=== PATIENT | male | born 1975 | race Hispanic/Latino ===

== ENCOUNTER 2017-06-19 03:06 | Emergency (ER) | payer SELFPAY ==
[2017-06-19 04:21] LABS: Absolute Lymphocytes (CBC) 2.7 K/uL (0.7-4.9); Absolute Monocytes 0.7 K/uL (0.1-1.3); Absolute Neutrophil 4.9 K/uL (1.8-8.0); Basophils % 0.7 % (0-1.3); Eosinophils % 1.2 % (0-4.4); Hematocrit 44.4 % (39.6-49.0); Lymphocytes % 31.9 % (15.3-44.8); MCH 31.5 pg (27.0-35.0); MCV 91.7 fL (80-100); MPV 10.9 fL (7.6-11.3); Monocytes % 7.9 % (3.3-12.3); RBC Red Blood Cell Count 4.84 M/uL (4.33-5.43)
[2017-06-19 05:03] LABS: Bicarbonate 22 mEq/L (21-31); Glucose Level 207 mg/dL (65-120); Potassium 4.4 mEq/L (3.6-5.0); Sodium Level 136 mEq/L (135-145)
[2017-06-19 05:09] LABS: ALT/SGPT 98 IU/L (10-60); AST/SGOT 62 IU/L (10-42); Albumin 4.5 g/dL (3.2-5.5); Alkaline Phosphatase 101 IU/L (42-121); BUN Blood Urea Nitrogen 10 mg/dL (6-20); Bilirubin Direct 0.1 mg/dL (0-0.2); Bilirubin Total 0.7 mg/dL (0.3-1.2); Creatine Phosphokinase 255 IU/L (22-269); Magnesium 2.1 mg/dL (1.8-2.5); Protein, Total 7.6 g/dL (6.0-8.3)
[2017-06-19 05:13] LABS: CKMB Creatine Kinase MB 1.3 ng/ml (0.3-4.0)
--- NOTE | 2017-06-19 05:26 | EDPHYS ---
Physician Documentation [facility] Name: Georges Marroquin Age: 41 yrs Sex: Male : 1975 Arrival Date: 06/19/2017 Time: 03:07 Bed 2 Private MD: ED Physician Juan Mcmanus HPI: 06/19 03:30 This 41 yrs old Male presents to ER via EMS with complaints of Chest Pain > 30 pkl y/o. 03:30 The patient or guardian reports chest pain that is located primarily in the substernal pkl area. Onset: just prior to arrival, 1 hour(s) ago, and improved just prior to arrival. The pain does not radiate. Associated signs and symptoms: The patient has no apparent associated signs or symptoms. The chest pain is described as a pressure. Historical: - Allergies: 03:19 No Known Allergies; ea - Home Meds: 03:19 Lorazepam Oral [Active]; Zoloft Oral [Active]; ea - PMHx: 03:19 Diabetes - IDDM; Anxiety; ea - Immunization history:: Adult Immunizations up to date. ROS: 03:30 Eyes: Negative for injury, pain, redness, and discharge, ENT: Negative for injury, pkl pain, and discharge, Neck: Negative for injury, pain, and swelling. 03:30 Cardiovascular: Positive for chest pain. 03:30 Respiratory: Positive for shortness of breath. 03:30 Abdomen/GI: Negative for abdominal pain, nausea, vomiting, and diarrhea. 03:30 Back: Negative for acute changes. 03:30 : Negative for urinary symptoms. 03:30 MS/extremity: Negative for acute changes. 03:30 Skin: Negative for rash. 03:30 Neuro: Negative for altered mental status. Exam: 03:30 Head/Face: Normocephalic, atraumatic. Eyes: Pupils equal round and reactive to light, pkl extra-ocular motions intact. Lids and lashes normal. Conjunctiva and sclera are non-icteric and not injected. Cornea within normal limits. Periorbital areas with no swelling, redness, or edema. ENT: Nares patent. No nasal discharge, no septal abnormalities noted. Tympanic membranes are normal and external auditory canals are clear. Oropharynx with no redness, swelling, or masses, exudates, or evidence of obstruction, uvula midline. Mucous membranes moist. Neck: Trachea midline, no thyromegaly or masses palpated, and no cervical lymphadenopathy. Supple, full range of motion without nuchal rigidity, or vertebral point tenderness. No Meningismus. Chest/axilla: Normal chest wall appearance and motion. Nontender with no deformity. No lesions are appreciated. Cardiovascular: Regular rate and rhythm with a normal S1 and S2. No gallops, murmurs, or rubs. Normal PMI, no JVD. No pulse deficits. Respiratory: Lungs have equal breath sounds bilaterally, clear to auscultation and percussion. No rales, rhonchi or wheezes noted. No increased work of breathing, no retractions or nasal flaring. Abdomen/GI: Soft, non-tender, with normal bowel sounds. No distension or tympany. No guarding or rebound. No evidence of tenderness throughout. Back: No spinal tenderness. No costovertebral tenderness. Full range of motion. Skin: Warm, dry with normal turgor. Normal color with no rashes, no lesions, and no evidence of cellulitis. MS/ Extremity: Pulses equal, no cyanosis. Neurovascular intact. Full, normal range of motion. Neuro: Awake and alert, GCS 15, oriented to person, place, time, and situation. Cranial nerves II-XII grossly intact. Motor strength 5/5 in all extremities. Sensory grossly intact. Cerebellar exam normal. Normal gait. Vital Signs: 03:19 BP 139 / 86 LA Sitting (auto/reg); Pulse 94; Resp 20; Pulse Ox 95% ; Weight 122.47 kg; cc Height 6 ft. 0 in. (182.88 cm); Pain 0/10; 04:00 BP 129 / 81; Pulse 91; Resp 18; Pulse Ox 100% on R/A; Pain 0/10; ea 05:21 BP 147 / 90; Pulse 91; Resp 18 S; Pulse Ox 99% on R/A; ea 03:19 Body Mass Index 36.62 (122.47 kg, 182.88 cm) cc MDM: 03:12 Patient medically screened. pkl 05:25 Data reviewed: vital signs, nurses notes, lab test result(s), EKG, radiologic studies, pkl plain films. 06/19 03:24 Order name: Basic Metabolic Panel; Complete Time: 05:24 pkl 06/19 03:24 Order name: BNP; Complete Time: 05:24 pkl 04 03:24 Order name: CBC with Diff; Complete Time: 05:24 pkl 06/19 03:24 Order name: Ckmb; Complete Time: 05:24 pkl 06/19 03:24 Order name: CPK; Complete Time: 05:24 pkl 06/19 03:24 Order name: LFT's; Complete Time: 05:24 pkl 06/19 03:24 Order name: Magnesium; Complete Time: 05:24 pkl 06/19 03:24 Order name: PT-INR; Complete Time: 05:24 pkl 06/19 03:24 Order name: Ptt, Activated; Complete Time: 05:24 pkl 06/19 03:24 Order name: Troponin (emerg Dept Use Only); Complete Time: 05:24 pkl 06/19 03:24 Order name: XRAY Chest (1 view) pkl 06/19 03:24 Order name: D-Dimer; Complete Time: 05:24 pkl 06/19 03:29 Order name: ETOH Level; Complete Time: 05:24 pkl 06/19 03:24 Order name: EKG; Complete Time: 03:25 pkl 06/19 03:24 Order name: Cardiac monitoring; Complete Time: 03:49 pkl 06/19 03:24 Order name: EKG - Nurse/Tech; Complete Time: 03:49 pkl 06/19 03:24 Order name: IV Saline Lock; Complete Time: 03:49 pkl 06/19 03:24 Order name: Labs collected and sent; Complete Time: 03:49 pkl 06/19 03:24 Order name: O2 Per Protocol; Complete Time: 03:49 pkl 06/19 03:24 Order name: O2 Sat Monitoring; Complete Time: 03:49 pkl 06/19 03:24 Order name: Urine Dipstick-Ancillary (obtain specimen); Complete Time: 03:49 pkl Administered Medications: No medications were administered Disposition: 06/19/17 05:26 Discharged to Home. Impression: Chest pain. - Condition is Stable. - Medication Reconciliation Form, Thank You Letter, Antibiotic Education, Prescription Opioid Use form. - Follow up: Private Physician; When: 2 - 3 days; Reason: Re-evaluation by your physician. - Problem is new. - Symptoms have improved. Signatures: Dispatcher [employer] Juan Hemphill MD MD pkl Antunez, Elena, RN RN ea
--- NOTE | 2017-06-19 05:26 | ER ---
Nurse's Notes [facility] Name: Georges Marroquin Age: 41 yrs Sex: Male : 1975 Arrival Date: 06/19/2017 Time: 03:07 Bed 2 Private MD: Diagnosis: Chest pain Presentation: 06/19 03:00 Presenting complaint: EMS states: Called to snf, upon arrival pt complaining of ea chest pain in center of chest that was 10/10 and was making him short of breath. Transition of care: patient was not received from another setting of care. Onset of symptoms was June 19, 2017. Care prior to arrival: None. 03:00 Method Of Arrival: EMS: [facility] ea 03:00 Acuity: URMILA 3 ea Triage Assessment: 03:20 General: Appears uncomfortable, Behavior is anxious. General: pt denies pain states "it ea is not pain it is pressure it feels like someone is sitting on my chest". Pain: Denies pain. EENT: No deficits noted. Neuro: Level of Consciousness is awake, alert, obeys commands, Oriented to person, place, time, situation. Cardiovascular: Heart tones present Patient's skin is warm and dry. Respiratory: Airway is patent Respiratory effort is even, unlabored, Respiratory pattern is regular, symmetrical. GI: No signs and/or symptoms were reported involving the gastrointestinal system. : No signs and/or symptoms were reported regarding the genitourinary system. Derm: Skin is pink, warm \\T\\ dry. Historical: - Allergies: 03:19 No Known Allergies; ea - Home Meds: 03:19 Lorazepam Oral [Active]; Zoloft Oral [Active]; ea - PMHx: 03:19 Diabetes - IDDM; Anxiety; ea - Immunization history:: Adult Immunizations up to date. Screenin:23 Abuse screen: Denies threats or abuse. Nutritional screening: No deficits noted. ea Tuberculosis screening: No symptoms or risk factors identified. Fall Risk None identified. Assessment: 03:23 Pain: Pain does not radiate. Quality of pain is described as pressure, Pain began 30 ea min ago. 03:23 Neuro: Level of Consciousness is awake, alert, obeys commands, Oriented to person, ea place, time, situation. Cardiovascular: Heart tones present Patient's skin is warm and dry. Respiratory: Airway is patent Respiratory effort is even, unlabored, Respiratory pattern is regular, symmetrical. Derm: Skin is pink, warm \\T\\ dry. 04:00 Reassessment: Patient is alert, oriented x 3, equal unlabored respirations, skin ea warm/dry/pink. [employer] at bedside. Patient denies pain at this time. Patient states feeling better. Patient states symptoms have improved. 05:19 Reassessment: Patient is alert, oriented x 3, equal unlabored respirations, skin ea warm/dry/pink. [employer] at bedside Patient denies pain at this time. Patient states feeling better. Patient states symptoms have improved. 05:32 Reassessment: Patient is alert, oriented x 3, equal unlabored respirations, skin ea warm/dry/pink. Discharge instructions given to patient, [employer] at bedside, pt verbalized understanding of instruction. Patient denies pain at this time. Patient states feeling better. Patient states symptoms have improved. Reassessment: [employer] at bedside. Vital Signs: 03:19 BP 139 / 86 LA Sitting (auto/reg); Pulse 94; Resp 20; Pulse Ox 95% ; Weight 122.47 kg; cc Height 6 ft. 0 in. (182.88 cm); Pain 0/10; 04:00 BP 129 / 81; Pulse 91; Resp 18; Pulse Ox 100% on R/A; Pain 0/10; ea 05:21 BP 147 / 90; Pulse 91; Resp 18 S; Pulse Ox 99% on R/A; ea 03:19 Body Mass Index 36.62 (122.47 kg, 182.88 cm) cc ED Course: 03:07 Patient arrived in ED. am2 03:12 Juan Mcmanus MD is Attending Physician. pkl 03:17 Triage completed. ea 03:18 Inserted saline lock: 18 gauge in right antecubital area, using aseptic technique. cc Blood collected. 03:19 EKG done, by ED staff, reviewed by Juan Mcmanus MD. cc 03:23 Arm band placed on left wrist. ea 03:23 Patient has correct armband on for positive identification. Call light in reach. Side ea rails up X2. personnel monitor on. Pulse ox on. NIBP on. 03:24 Ileana Zurita, NEELIMA is Primary Nurse. ea 03:24 Patient maintains SpO2 saturation greater than 95% on room air. ea 03:42 XRAY Chest (1 view) In Process Unspecified. EDMS 05:35 No provider procedures requiring assistance completed. IV discontinued, intact, ea bleeding controlled, No redness/swelling at site. Pressure dressing applied. Administered Medications: No medications were administered Outcome: 05:26 Discharge ordered by . roseline 05:36 Discharged to [employer] Enforcement ea 05:36 Condition: improved 05:36 Discharge instructions given to patient, Instructed on discharge instructions, follow up and referral plans. Demonstrated understanding of instructions, follow-up care. 05:36 Patient left the ED. ea Signatures: Dispatcher [employer] EDMS Juan Mcmanus MD MD pkl Christian, Chelsea cc Moreno, Amanda am2 Ileana Zurita RN RN ea Corrections: (The following items were deleted from the chart) 04:00 03:23 Pain: Pain does not radiate. Pain began 30 min ago. ea ea 05:35 03:23 Respiratory: Airway is patent Respiratory effort is even, unlabored, Respiratory ea pattern is regular, symmetrical, ea 05:35 04:00 Reassessment: Patient is alert, oriented x 3, equal unlabored respirations, skin ea warm/dry/pink. Patient denies pain at this time. Patient states feeling better. Patient states symptoms have improved. ea 05:35 05:19 Reassessment: Patient is alert, oriented x 3, equal unlabored respirations, skin ea warm/dry/pink. Patient denies pain at this time. Patient states feeling better. Patient states symptoms have improved. ea
--- NOTE | 2017-06-19 07:05 | EKG ---
Test Date: 2017-06-19 Test Time: 03:14:36 Campground Attendant: MEASUREMENT RESULTS: Intervals: Rate: 93 MS: 180 QRSD: 102 QT: 372 QTc: 462 [place]: P: 49 MS: 180 QRS: 44 T: 14 INTERPRETIVE STATEMENTS: Normal sinus rhythm Normal ECG Compared to ECG 03/07/1999 12:45:00 Sinus arrhythmia no longer present Incomplete right bundle-branch block no longer present Electronically Signed On 06-19-17 07:04:31 CDT by Dony Laughlin
--- NOTE | 2017-06-19 07:57 | RAD REPORT ---
EXAM DESCRIPTION: RAD - Chest Single View - 06/19/2017 3:42 am CLINICAL HISTORY: Chest pain, shortness of breath COMPARISON: None. TECHNIQUE: AP portable chest image was obtained 0330 hours . FINDINGS: Lungs are clear. Heart and vasculature are normal. No measurable pleural effusion and no p neumothorax. No gross bony abnormality seen. No acute aortic findings suspected. IMPRESSION: No acute cardiopulmonary process.
== END 2017-06-19 05:36 | disposition home or self-care (01) ==
LOC: ER 03:06
DX: R07.9 Chest pain, unspecified (principal); E11.9 Type 2 diabetes mellitus without complications; F41.9 Anxiety disorder, unspecified
CPT/HCPCS: 36415; 71045; 80048; 80076; 80320; 82550; 82553; 83735; 83880; 84484; 85025; 85379; 85610; 85730; 93005; 99285

== ENCOUNTER 2022-05-24 10:36 | Emergency (ER) | payer SELFPAY | END 2022-05-24 11:25 | disposition home or self-care (01) | LOC: ER 10:36 | DX: Z02.9 Encounter for administrative examinations, unspecified (principal) ==

== ENCOUNTER 2024-11-04 11:42 | Emergency (ER) | payer BC ==
[2024-11-04] MEDS ORDERED: ASPIRIN 81 MG CHEWABLE TABLET ONE (11:51)
[2024-11-04 12:08] LABS: Absolute Lymphocytes (CBC) 1.8 K/uL (0.7-4.9); Hematocrit 40.2 % (39.6-49.0); Hemoglobin 13.5 g/dL (13.6-17.9); MCH 28.7 pg (27.0-35.0); MCHC 33.6 g/dL (32.0-36.0); MCV 85.5 fL (80-100); MPV 9.8 fL (7.6-11.3); Nucleated RBC Absolute Count 0.0 (0-0); Nucleated Red Blood Cells % 0.0 % (0-0); RBC Red Blood Cell Count 4.70 M/uL (4.33-5.43); White Blood Count 7.50 thou/uL (4.3-10.9)
[2024-11-04 12:32] LABS: ALT/SGPT 43.0 U/L (16-61); AST/SGOT 26.0 U/L (15-37); Albumin 3.7 g/dL (3.4-5.0); Albumin/Globulin Ratio 0.9 (1.1-1.8); Alkaline Phosphatase 92.0 U/L (45-117); Anion Gap 9.6 mEq/L (5.0-15.0); BUN Blood Urea Nitrogen 8.0 mg/dL (7-18); Globulin 3.9 g/dL (2.3-3.5); Glucose Level 134.0 mg/dL (74-106); NT PRO-BNP 25.0 pg/mL (<125); Potassium 3.6 mEq/L (3.5-5.1); Troponin High Sensitivity 3.6 pg/mL (<58.9)
--- NOTE | 2024-11-04 12:51 | RAD REPORT ---
EXAM: Chest Single View HISTORY: 49 years Male CHEST PAIN COMPARISON: 04/19/2019 FINDINGS: LUNGS/PLEURA: The lungs are clear. No pleural effusions or pneumothorax. No pulmonary edema. CARDIAC/MEDIASTINUM: The cardiac silhouette is within normal limits. UPPER ABDOMEN: No significant abnormality. BONES: No acute abnormality. LINES/TUBES/OTHER: N/A IMPRESSION: No evidence of acute cardiopulmonary disease.
--- NOTE | 2024-11-04 13:30 | ER ---
Nurse's Notes [facility] Name: Georges Marroquin Age: 49 yrs Sex: Male : 1975 Arrival Date: 11/04/2024 Time: 11:42 Bed 14 Private MD: Diagnosis: Chest pain, unspecified Presentation: 11/04 11:48 Acuity: URMILA 3 aa5 11:48 Chief complaint: Patient states: had follow-up with PCP today and had abnormal EKG at aa5 PCP's office. Pt denies any complaints, pt states "I just feel anxious now". 11:48 Coronavirus screen: At this time, the client does not indicate any symptoms associated aa5 with coronavirus-19. Ebola Screen: Patient denies travel to an Ebola-affected area in the 21 days before illness onset. Initial Sepsis Screen: Does the patient meet any 2 criteria? No. Patient's initial sepsis screen is negative. Does the patient have a suspected source of infection? No. Patient's initial sepsis screen is negative. Risk Assessment: Do you want to hurt yourself or someone else? Patient reports no desire to harm self or others. Onset of symptoms was November 04, 2024. 11:48 Method Of Arrival: Ambulatory aa5 Historical: - Allergies: 11:52 No Known Allergies; aa5 - Home Meds: 11:52 Prilosec Oral [Active]; Mounjaro subcutaneous [Active]; Zoloft Oral [Active]; Lorazepam aa5 Oral [Active]; - PMHx: 11:52 Anxiety; fatty liver; Hypercholesterolemia; Diabetes mellitus; Acid Reflux; aa5 - Immunization history:: Adult Immunizations unknown. - Infectious Disease History:: Denies. - Social history:: Smoking status: Reported history of juuling and/or vaping. Screenin:48 [facility] ED Fall Risk Assessment (Adult) History of falling in the last 3 months, aa5 including since admission No falls in past 3 months (0 pts) Confusion or Disorientation No (0 pts) Intoxicated or Sedated No (0 pts) Impaired Gait No (0 pts) Mobility Assist Device Used No (0 pt) Altered Elimination No (0 pt) Score/Fall Risk Level 0 - 2 = Low Risk Oriented to surroundings, Maintained a safe environment, Educated pt \\T\\ family on fall prevention, incl call for assistance when getting out of bed, Assessed \\T\\ reinforced patient's understanding of fall precautions. Abuse screen: Denies threats or abuse. Nutritional screening: No deficits noted. Tuberculosis screening: No symptoms or risk factors identified. Assessment: 11:48 General: Appears uncomfortable, Behavior is anxious. Pain: Denies pain. Neuro: Level of aa5 Consciousness is awake, alert, obeys commands, Oriented to person, place, time, situation. Cardiovascular: Denies chest pain, diaphoresis, fatigue, lightheadedness, nausea, palpitations, shortness of breath, syncope, vomiting, Heart tones S1 S2 present Rhythm is regular. Respiratory: Airway is patent Respiratory effort is even, unlabored, Respiratory pattern is regular, symmetrical. GI: Abdomen is round non-distended, obese, Bowel sounds present X 4 quads. Abd is soft and non tender X 4 quads. Patient currently denies nausea, vomiting. : No signs and/or symptoms were reported regarding the genitourinary system. EENT: No signs and/or symptoms were reported regarding the EENT system. Derm: Skin is pink, warm \\T\\ dry. Musculoskeletal: Range of motion: intact in all extremities. 12:00 Reassessment: Patient is alert, oriented x 3, equal unlabored respirations, skin aa5 warm/dry/pink. Patient denies pain at this time. Patient states feeling better. Anxiety has improved. . Vital Signs: 11:48 BP 171 / 100; Pulse 95; Resp 19 S; Temp 98(O); Pulse Ox 100% on R/A; Weight 118.39 kg aa5 (R); Height 6 ft. 0 in. (R); Pain 0/10; 13:00 BP 150 / 81; Pulse 87; Resp 18 S; Pulse Ox 99% on R/A; aa5 13:30 BP 150 / 83; Pulse 86; Resp 16; Temp 98.2; Pulse Ox 99% ; me1 11:48 Body Mass Index 35.40 (118.39 kg, 182.88 cm) aa5 11:48 Pain Scale: Adult aa5 ED Course: 11:44 Patient arrived in ED. mr 11:46 Tyson [facility]C [facility]. [facility] 11:46 Pepe Maloney DO is Attending Physician. dr5 11:46 Duke, Fabi, RN is Primary Nurse. aa5 11:48 Arm band placed on Patient placed in an exam room, on a stretcher. EKG completed in aa5 triage. Results shown to MD. 11:48 Patient has correct armband on for positive identification. Bed in low position. Call aa5 light in reach. Side rails up X2. Client placed on continuous cardiac and pulse oximetry monitoring. NIBP monitoring applied. teletypesetter monitor on. Pulse ox on. NIBP on. 11:53 Triage completed. aa5 12:02 Initial lab(s) drawn, by me, sent to lab. EKG done, by ED staff, reviewed by Tyson VALADEZ. Inserted saline lock: 20 gauge in right antecubital area, using aseptic technique. Blood collected. Flushed with 10 mL NS. 12:08 CBC with Diff Sent. nh2 12:08 NT PRO-BNP Sent. nh2 12:08 Troponin HS Sent. nh2 12:41 XRAY Chest (1 view) In Process Unspecified. EDIL 13:00 Report given to NEELIMA Barrera. aa5 13:19 No provider procedures requiring assistance completed. aa5 13:41 Provided Education on: POC. Verbalized understanding.. me1 13:41 IV discontinued, intact, bleeding controlled, No redness/swelling at site. Pressure me1 dressing applied. Administered Medications: 12:00 Drug: Aspirin PO Chewable Tablet 324 mg PO once; 81 mg tablets x 4 Route: PO; nh2 12:30 Follow up: Response: No adverse reaction nh2 12:01 Not Given (Patient Refused): ondansetron 4 mg IVP once; over 2 minutes aa5 12:02 Not Given (Pt denies painn): morphineor iv 4 mg IVP once over 4 mins aa5 Medication: 13:41 VIS not applicable for this client. me1 Outcome: 13:29 Discharge ordered by MD. dr5 13:41 Discharged to home ambulatory, with significant other, me1 13:41 Condition: stable 13:41 Discharge instructions given to patient, significant other, Instructed on discharge instructions, follow up and referral plans. medication usage, Demonstrated understanding of instructions, follow-up care, medications, Prescriptions given X 1, 13:42 Patient left the ED. me1 Signatures: Dispatcher [employer] [facility] Lois Marroquin, Reg Reg mr Fabi Duke, RN RN aa5 Alana Ramesh 6 Holly Cardoza RN RN me1 Claude Phillips Jr RN RN nh2 Tyson Hernandez, SLIDE FORMING MACHINE OPERATOR-C SLIDE FORMING MACHINE OPERATOR-Cdr5 Corrections: (The following items were deleted from the chart) 11:52 PMHx: Diabetes - IDDM; aa5 aa5 11:52 PMHx: Diabetes mellitus; aa5 aa5 13:12 13:11 Response: No adverse reaction nh2 nh2
--- NOTE | 2024-11-04 13:30 | EDPHYS ---
Physician Documentation [facility] Name: Georges Marroquin Age: 49 yrs Sex: Male : 1975 Arrival Date: 11/04/2024 Time: 11:42 Bed 14 Private MD: ED Physician Pepe Maloney HPI: 11/04 12:01 This 49 yrs old Male presents to ER via Unassigned with complaints of Abnormal dr5 labs. 12:01 Onset: The symptoms/episode began/occurred 4 day(s) ago. 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 Patient reports that last he reports episode of headache without chest pain and called EMS for evaluation. Patient states that he tried to get into his doctor on Monday but was not able to get into until today. Patient denies chest pain or any pain at all today. Patient reports he was seen at primary care doctor and sent for labs for abnormal EKG.. Historical: - Allergies: 11:52 No Known Allergies; aa5 - Home Meds: 11:52 Prilosec Oral [Active]; Mounjaro subcutaneous [Active]; Zoloft Oral [Active]; Lorazepam aa5 Oral [Active]; - PMHx: 11:52 Anxiety; fatty liver; Hypercholesterolemia; Diabetes mellitus; Acid Reflux; aa5 - Immunization history:: Adult Immunizations unknown. - Infectious Disease History:: Denies. - Social history:: Smoking status: Reported history of juuling and/or vaping. ROS: 12:02 Constitutional: as per hpi dr5 Exam: 12:02 Constitutional: This is a well developed, well nourished patient who is awake, alert, dr5 and in no acute distress. Head/Face: Normocephalic, atraumatic. Eyes: Pupils equal round and reactive to light, extra-ocular motions intact. Lids and lashes normal. Conjunctiva and sclera are non-icteric and not injected. Cornea within normal limits. Periorbital areas with no swelling, redness, or edema. Neck: Trachea midline, no thyromegaly or masses palpated, and no cervical lymphadenopathy. Supple, full range of motion without nuchal rigidity, or vertebral point tenderness. No Meningismus. Chest/axilla: Normal chest wall appearance and motion. Nontender with no deformity. No lesions are appreciated. Cardiovascular: Regular rate and rhythm with a normal S1 and S2. Normal PMI, no JVD. No pulse deficits. Respiratory: Lungs have equal breath sounds bilaterally, clear to auscultation. No rales, rhonchi or wheezes noted. No increased work of breathing, no retractions or nasal flaring. Abdomen/GI: Soft, non-tender, non-distended Back: No spinal tenderness. No costovertebral tenderness. Full range of motion. Skin: Warm, dry with normal turgor. Normal color with no rashes, no lesions, and no evidence of cellulitis. MS/ Extremity: Pulses equal, no cyanosis. Neurovascular intact. Full, normal range of motion. Neuro: Awake and alert, GCS 15, oriented to person, place, time, and situation. Cranial nerves II-XII grossly intact. Motor strength 5/5 in all extremities. Sensory grossly intact. Cerebellar exam normal. Normal gait. Vital Signs: 11:48 BP 171 / 100; Pulse 95; Resp 19 S; Temp 98(O); Pulse Ox 100% on R/A; Weight 118.39 kg aa5 (R); Height 6 ft. 0 in. (R); Pain 0/10; 13:00 BP 150 / 81; Pulse 87; Resp 18 S; Pulse Ox 99% on R/A; aa5 13:30 BP 150 / 83; Pulse 86; Resp 16; Temp 98.2; Pulse Ox 99% ; me1 11:48 Body Mass Index 35.40 (118.39 kg, 182.88 cm) aa5 11:48 Pain Scale: Adult aa5 MDM: 11:47 Medical Screening Exam initiated dr5 18:13 Differential diagnosis: viral Infection, bacterial infection, bronchitis, pneumonia dr5 NSTEMI, STEMI, pneumomediastinum. Data reviewed: vital signs, nurses notes, lab test result(s), cardiac enzymes, troponin i, CBC, white blood cell count, hemoglobin, hematocrit, platelets, electrolytes, sodium, potassium, chloride, serum bicarbonate, BUN, creatinine, serum glucose, EKG, radiologic studies, plain films. Consideration of Admission/Observation Escalation of care including admission/observation considered. Escalation considered patient found to have elevated troponin or chest pain.. Management of patient was discussed with the following: Primary Care Provider: Dr. Jaquez called and discussed case. I considered the following discharge prescriptions or medication management in the emergency department I discussed and recommended Over The Counter medications, Medications were administered in the Emergency Department. See MAR. Independent interpretation of the following test(s) in the Emergency Department X-Ray: My interpretation is Independent interpretation of x-ray did not reveal any infiltrates.. Care significantly affected by the following chronic conditions: Diabetes, Anxiety, fatty liver, hyperlipidemia, acid reflux. Care significantly affected by the following Social Determinants of Health: Poor access to healthcare and/or lack of insurance, Poor access to transportation, Problems related to employment. Scoring Tools HEART Score: History: ECG: Age: Risk Factors: 1 or 2 risk factors (1), Troponin: Total Score = 2 Nexus C Spine. Counseling: I had a detailed discussion with the patient and/or guardian regarding the historical points, exam findings, and any diagnostic results supporting the discharge/admit diagnosis, the presence of at least one elevated blood pressure reading (>120/80) during this emergency department visit, lab results, radiology results, the need for outpatient follow up, for definitive care, a family practitioner, to return to the emergency department if symptoms worsen or persist or if there are any questions or concerns that arise at home. Medication response: Aspirin. Response to treatment: the patient's condition has returned to base line, the patient is now symptom free. Special discussion: I have referred the patient to see his PCP for further evaluation of high blood pressure. I discussed with the patient/guardian in detail that at this point there is no indication for admission to the hospital. It is understood, however, that if the symptoms persist or worsen the patient needs to return immediately for re-evaluation. Based on the history and exam findings, there is no indication for further emergent testing or inpatient evaluation. I discussed with the patient/guardian the need to see the primary care provider for further evaluation of the symptoms. ED course: Patient did not have chest pain during entire stay in the ER. Normal EKG. Normal troponin. Will have patient follow-up back up with Dr. Jaquez. Labs and EKG printed and given to patient take with him. All question answered. Strict ER precautions given. Patient is agreeable to plan.. 11/04 11:47 Order name: CBC with Diff; Complete Time: 12:33 dr5 11/04 11:47 Order name: NT PRO-BNP; Complete Time: 12:33 dr5 11/04 11:47 Order name: Troponin HS; Complete Time: 12: dr5 11/04 11:47 Order name: CMP; Complete Time: 12: dr5 11/04 11:47 Order name: XRAY Chest (1 view); Complete Time: 13:26 dr5 11/04 11:47 Order name: EKG; Complete Time: 11:48 dr5 11/04 11:47 Order name: Cardiac monitoring; Complete Time: 11:58 dr5 11/04 11:47 Order name: EKG - Nurse/Tech; Complete Time: 11:58 dr5 11/04 11:47 Order name: IV Saline Lock; Complete Time: 12: dr5 11/04 11:47 Order name: Labs collected and sent; Complete Time: 12: dr5 11/04 11:47 Order name: O2 Per Protocol; Complete Time: 11:58 dr5 11/04 11:47 Order name: O2 Sat Monitoring; Complete Time: 11:58 dr5 EC:50 Rate is 93 beats/min. Rhythm is regular. QRS [place] is Normal. NH interval is normal at dr5 166 msec. QRS interval is normal at 98 msec. QT interval is normal at 354 msec. Clinical impression: Normal ECG and No evidence of ischemia. Administered Medications: 12:00 Drug: Aspirin PO Chewable Tablet 324 mg PO once; 81 mg tablets x 4 Route: PO; nh2 12:30 Follow up: Response: No adverse reaction nh2 12:01 Not Given (Patient Refused): ondansetron 4 mg IVP once; over 2 minutes aa5 12:02 Not Given (Pt denies painn): morphineor iv 4 mg IVP once over 4 mins aa5 Disposition: 20:02 I was immediately available on-site in the Emergency Department for consultation in the ms3 care of the patient. Disposition Summary: 11/04/24 13:29 Discharge Ordered Notes: Location: Home dr5 Condition: Stable dr5 Diagnosis - Chest pain, unspecified dr5 Followup: dr5 - With: Emergency Department - When: As needed - Reason: Worsening of condition Followup: dr5 - With: Private Physician - When: 1 - 2 days - Reason: Recheck today's complaints, Continuance of care, Re-evaluation by your physician Discharge Instructions: - Discharge Summary Sheet dr5 - Nonspecific Chest Pain, Adult dr5 Forms: - Work release form me1 - Medication Reconciliation Form dr5 - Patient Portal Instructions dr5 - Leadership Thank You Letter dr5 Prescriptions: - Ibuprofen 800 mg Oral Tablet - take 1 tablet ORAL route every 12 hours As needed take with food; 20 tablet; dr5 Refills: 0, Product Selection Permitted Signatures: Dispatcher [employer] Fabi Nava RN RN aa5 Pepe Maloney DO DO ms3 Claude Phillips Jr, RN RN nh2 Tyson Hernandez, LACY-C [employer] CH[employer] OPERATOR-[facility]5 Corrections: (The following items were deleted from the chart) 11:52 PMHx: Diabetes - IDDM; aa5 aa5 1153 11:52 PMHx: Diabetes mellitus; aa5 aa5
[2024-11-04 18:19] VITALS: O2SAT 99
[2024-11-04 18:21] VITALS: BP 150/83; TEMP 98.2
== END 2024-11-04 13:42 | disposition home or self-care (01) ==
LOC: ER 11:42
DX: R07.9 Chest pain, unspecified (principal); R94.31 Abnormal electrocardiogram [ECG] [EKG]; F41.9 Anxiety disorder, unspecified
CPT/HCPCS: 36415; 71045; 80053; 83880; 84484; 85025; 93005; 99285